=== PATIENT | female | born 1980 | race Hispanic/Latino ===

== ENCOUNTER 2018-06-17 13:17 | Emergency (ER) | payer OTHER ==
[2018-06-17 14:14] VITALS: BMI 21.6
[2018-06-17] MEDS ORDERED: Betamethasone Soluspan 30 mg/5mL Inj Susp IM ONE (14:30)
[2018-06-17] MEDS ORDERED: Lactated Ringer's 1,000 ML IV SCH (15:30)
[2018-06-17 16:36] LABS: SQUAMOUS EPITHIAL < 1 /hpf (0-5); URINE BACTERIA RARE (<OCC); URINE BILIRUBIN NEGATIVE (NEGATIVE); URINE BLOOD NEGATIVE (NEGATIVE); URINE CLARITY SLIGHTY-CLOUDY (Clear); URINE COLOR YELLOW (YELLOW); URINE GLUCOSE (UA) NEG (NEGATIVE); URINE LEUKOCYTE ESTERASE NEG Leu/uL (Negative); URINE PROTEIN NEGATIVE (NEGATIVE); URINE UROBILINOGEN 0.2-1.0 mg/dL (0.2-1.0)
[2018-06-21 16:40] VITALS: BP 102/63; PULSE 77
== END 2018-06-17 17:30 | disposition home or self-care (01) ==
LOC: H.EROB2 13:17
DX: O26.93 Pregnancy related conditions, unspecified, third trimester (principal); Z23 Encounter for immunization; Z3A.33 33 weeks gestation of pregnancy
CPT/HCPCS: 81003; 96372; 99281; J0702; J7120

== ENCOUNTER 2018-06-18 13:22 | Emergency (ER) | payer OTHER ==
[2018-06-18 13:44] VITALS: BMI 23.3
[2018-06-18] MEDS ORDERED: Betamethasone Soluspan 30 mg/5mL Inj Susp IM ONE (13:44)
[2018-06-18] MEDS: Lactated Ringer's 1,000 ML IV SCH ×2 (15:40→17:45)
--- NOTE | 2018-06-18 20:00 | OBHP ---
Datetime: 06/18/2018 14:13 IP Adm Impression: , intrauterine ; No Active Labor IP Admit Plan: Observation/Evaluation; Discharge home Admit Comment, IP Provider: 37yo with IUP @ 33+6 based on LMP reports to the OB ER for secon d dose of Betamethasone IM for FLM. She reports of some intermitent pelvic cramping last night but de nies vaginal bleeding or vaginal leakage of fluid. ROS: negative except for stated above in the HPI Obhx: Follow with Dr. Fuller Family history: Denies Surgical history: previous D_C x2 for IAB; tonsillectomy; wrist surgery where a plate was placed; previous LEEP. PMHx: H/O Von Willebrands Disease but no history of bleeding from surgery or dental procedures. SocialHx; Denies smoking history, drinking or illicit drug use. P.E Afebrile Heart: RRR Lungs: Clear bilaterally. No wheezes, rhonchi or crackles Abd: Soft, NT, BS- present; gravid FHR- Category 1 Assessment: 37yo with IUP @ 33+6reports to the OB ER for second dose of Betamethasone IM f or FLM. Plan: -Second Bethamethazone IM dose for FLM given at this time. -Cano Martin Pena and EFM demonstrated reassuring NST -Patient given labor precautions at this time. - Patient has a scheduled appt on with Dr. Fuller, 06/23/[address] Alina Bell, PGY 1 OB Hospitalist Addendum: Pt seen and examined by me. 37 yo at 33+6 wks w/ short cervical length here for 2nd dose of betamethasone, c/o mild cramping on and off. VE closed/ 65/-3. Cervix 2.4 cm long, closed. FHT reactive. Pt discharged home w/ PT labor precautions. Pt has f/u appoint on ., 06/23/2018. (ES) Pelvic Type - PN: Adequate Extremities - PN: Normal Abdomen - PN: Normal Back - PN: Normal Breast - PN: Not Done Lungs - PN: Normal Heart - PN: Normal Thyroid - PN: Normal Neurologic - PN: Normal HEENT - PN: Normal General - PN: Normal FHR - Baseline A Provider: 125 EGA AdmitDate IP: 33.6 Vital Signs Provider: Reviewed; Within Normal Limits IP Chief Complaint: Maternal discomfort NICHD Variability Prov Fetus A: Moderate 6-25bpm NICHD Accel Fetus A IP Provider: 15X15 FHR Category Provider Fetus A: Category I NICHD Decel Fetus A IP Provider: None Genitourinary Exam: Normal DTRs - PN: Normal
--- NOTE | 2018-06-18 20:00 | OBDCSUM ---
Datetime: 06/18/2018 19:53 Discharged to, Provider: Home Follow up at, Provider: Dr. Fuller Disch Instr Activity: Normal activity Disch Instr Diet: Regular Discharge Diet restrict Prov: Pelvic rest Discharge Time: 06/18/2018 19:54 Follow up in weeks, Provider: 06/23/18 Disch Referrals: None Discharge Diagnosis Prov Other: Steroid administration Datetime: 06/18/2018 14:49 Discharged to, Provider: Home Follow up at, Provider: Dr. Alina Juarez Instr Activity: Normal activity Disch Instr Diet: Regular Discharge Diet restrict Prov: Pelvic Rest Discharge Time: 06/18/2018 14:53 Follow up in weeks, Provider: 06/23/18 Disch Referrals: None
[2018-06-19 00:12] VITALS: BP 102/63; PULSE 77
--- NOTE | 2018-06-19 10:02 | US ---
Date of service: 06/18/2018 PROCEDURE: OB Pelvic Ultrasound HISTORY: ctxns LMP: 10/15/2017 COMPARISON: None available. FINDINGS: Single intrauterine gestation is present. heart rate measures 125 beats per minute. Cervical length is 2.4 cm. Cervix is closed. IMPRESSION: Cervical length is 2.4 cm. Cervix is closed.
== END 2018-06-18 20:00 | disposition home or self-care (01) ==
LOC: H.EROB2 13:22
DX: O26.93 Pregnancy related conditions, unspecified, third trimester (principal); R10.2 Pelvic and perineal pain; Z23 Encounter for immunization; O09.93 Supervision of high risk pregnancy, unspecified, third trimester
CPT/HCPCS: 76817; 96360; 96372; 99282; J0702; J7120

== ENCOUNTER 2018-07-12 03:28 | Inpatient (IN) | payer OTHER ==
[2018-07-12 04:48] VITALS: BMI 22.1
[2018-07-12] MEDS ORDERED: Morphine 5 MG/ML SYRINGE IM ONE ×2 (04:49→04:51)
[2018-07-12] MEDS ORDERED: Morphine 5 MG/ML SYRINGE IVP ONE (04:51)
[2018-07-12] MEDS ORDERED: Lactated Ringer's 1,000 ML IV SCH (08:15)
--- NOTE | 2018-07-12 08:20 | OBADHP ---
Datetime: 07/12/2018 04:34 Admit Comment, IP Provider: PNP: Dr. Fuller 38 y/o @ 37.2 w/ANUJA of 07/31/2018 w hx of Von Willebrand disease is presenting with complaints of ctx every 5-6 minutes since 930pm, 8 in nature, loss of mucus plug with small amt of streaked blood _ possible leaking of fluid. She endorses + FM _ nausea, but denied any f/c/cp, sob, dizziness, vomitting or recent travel. OBGYNhx: visited ED several weeks agp for lower abd cramping- found to have a shortened cervix and given dexamethasone x 2 doses; Induced abx x 2; sab x 1 -LEEP procedure performed w/o bleeding PMH: Von Willebrand disease All: none Meds: Benadryl- for sleeping, PNV Surghx: plate placed in left arm; sinus surgery- both with bleeding post-op Famhx: both parents healthy; hx of gyncelogical cancer on maternal side Sochx: denies tobacco, EtOH or elicit drug use ROS: 12 points reviewed and neg unless otherwise mentioned in HPI PE: Gen:gravid female with facial grimacing laying in supine position Cardio: s1s2, no murmurs Lungs: cta b/l Abd: gravid, nontender, no rigidity, no guarding Pelvic: sterile spec- no gross pooling, nitrazine test negative; 1cm dilated, 90 % effaced, -3 Ext: calves nontender, nonedematous A/P: 38 y/o @ 37.2 w/ANUJA of 07/31/2018, clinically stable, _ medhx of Von Willebrand disease c /o ctx every 5-6 minutes since 930pm, loss of mucus plug with small amt of streaked blood _ possible leaking of fluid. -Speculum exam showed no gross pooling, nitrazine test negative; 1 cm, 90%, -3 -Continue _ VS monitoring -Morphine ordered for pain management -Will reassess for cervical change; if no change dc home otherwise will admit Patient seen and examined with Dr. Prado -Suad Gant, PGY-1, FM Addendum by Dr. prado: Patient evaluated independently and I agree with the above. Patient re-eval auted and now /-1. Patient in labor, will admit, IVF, CBC/type and screen, and alert hematology Membranes, Provider: Intact Gestation - Est Wks by US: 37.2 Pool Provider: Negative Nitrazine Provider: Negative Vital Signs Provider: Reviewed; Within Normal Limits IP Chief Complaint: Uterine contractions; Suspected ruptured membranes NICHD Variability Prov Fetus A: Moderate 6-25bpm NICHD Accel Fetus A IP Provider: [id number] FHR Category Provider Fetus A: Category I Dilatation, Provider: 1 Effacement, Provider: 90 Station, Provider: -3 EGA AdmitDate IP: 37.2 IP Adm Impression: Term, intrauterine IP Admit Plan: Observation/Evaluation Datetime: 06/18/2018 14:13 Pelvic Type - PN: Adequate Extremities - PN: Normal Abdomen - PN: Normal Back - PN: Normal Breast - PN: Not Done Lungs - PN: Normal Heart - PN: Normal Thyroid - PN: Normal Neurologic - PN: Normal HEENT - PN: Normal General - PN: Normal FHR - Baseline A Provider: 125 NICHD Decel Fetus A IP Provider: None Genitourinary Exam: Normal DTRs - PN: Normal Datetime: 06/17/2018 14:13 IP Adm Impression Other: Shortened Cervix on Ultrasound
[2018-07-12 09:09] LABS: BASO % 0.2 % (0.0-2.0); EOS % 0.4 % (0.0-4.0); HEMOGLOBIN 12.8 g/dL (12.0-16.0); LYMPH % 19.8 % (20.0-40.0); MEAN CORPUSCULAR HEMOGLOBIN 30.7 pg (27.0-31.0); MEAN CORPUSCULAR HGB CONC 33.4 g/dL (33.0-37.0); MEAN PLATELET VOLUME 10.4 fl (7.2-11.7); MONO % 10.4 % (0.0-10.0); NEUT % 69.2 % (50.0-75.0); NRBC % 0.1 % (0.0-0.0); RBC 4.16 Mil/uL (3.80-5.20); RED CELL DISTRIBUTION WIDTH 14.6 % (11.5-14.5); WHITE BLOOD COUNT 10.1 K/uL (4.8-10.8)
[2018-07-12 09:11] VITALS: O2SAT 98
[2018-07-12] MEDS ORDERED: Desmopressin 4 mcg/ml Inj (1 ml) IVPB SCH (09:45)
[2018-07-12] MEDS ORDERED: Oxytocin 30 UNIT 30 UNITS/500 ML BAG IV ONE ×3 (10:36→15:13)
[2018-07-12] MEDS ORDERED: raNITIdine HCl 150 mg/10 ml Soln Cup PO SCH (10:45)
[2018-07-12] MEDS ORDERED: OXYTOCIN/0.9 % NS 20 UNIT/1,000 ML BAG IV SCH (10:45)
[2018-07-12] MEDS: Lactated Ringer's 1,000 ML IV SCH ×2 (11:15→11:51)
--- NOTE | 2018-07-12 11:45 | OBPN ---
Datetime: 07/12/2018 10:25 IP Progress Impression: Normal progression of labor; Reassuring heart rate IP Informed Consent Obtain: Vaginal Delivery; Risks, Benefits and Alternatives Discussed IP Progress Plan: Augmentation Pool Provider: Negative Membranes, Provider: Intact Contraction Comments Provider: occ FHR - Baseline A Provider: 130 Presentation-Admit: Vertex IP Progress Note Comment: OB Hospitalist on-call - sign out re'cd from Dr Prado and pt's PMD Dr Dez wilson (both in L_D) case rev'd. Latnet phase of labor Sauloradhajoe's Disease PLAN: Discussion with Dr Greenwood...management, labor, delivey, medications all re'd with pt. She un derstands and her questoins answered. [place] rooms away from nurses' station (for more quiet atmo sphere). Will start Pitocin augmentation NICHD Accel Fetus A IP Provider: 15X15 FHR Category Provider Fetus A: Category I NICHD Variability Prov Fetus A: Moderate 6-25bpm Dilatation, Provider: 3 Effacement, Provider: 80 Station, Provider: -1 NICHD Decel Fetus A IP Provider: None Datetime: 07/12/2018 04:34 Nitrazine Provider: Negative Gestation - Est Wks by US: 37.2 Vital Signs Provider: Reviewed; Within Normal Limits
[2018-07-12] MEDS ORDERED: Lactated Ringer's 1,000 ML IV ONE (12:16)
[2018-07-12] MEDS ORDERED: Bupivacaine HCl 0.5% PF (30 ml) Inj ONE (13:05)
[2018-07-12] MEDS ORDERED: Fentanyl/Bupivacaine HCl 250 ML EPI ONE (13:32)
--- NOTE | 2018-07-12 14:43 | OBPN ---
Datetime: 07/12/2018 14:36 IP Progress Note Comment: Notified that she rec'd meds around 12pm; given epidural. She is now slee ping after being checked at 1:30pm (5cm)...Pitocin re-started. FH reassuring. YG
--- NOTE | 2018-07-12 16:02 | OBPN ---
Datetime: 07/12/2018 15:45 IP Progress Impression: Reassuring heart rate IP Procedures: Artificial ROM IP Progress Plan: Augmentation; Anticipate Vaginal Delivery Pool Provider: Positive Membranes, Provider: Ruptured Amniotic Fluid Color, Provider: Clear Contraction Comments Provider: 2-5m IP Progress Note Comment: She feels better after epidural. A: latnet phase of labor PLAN: Pioticn at 6miu/h...discussion about labor and augmentatoin...She agreed - AROM clear fluid. ..monitor progress FHR Category Provider Fetus A: Category I Dilatation, Provider: 4-5 Effacement, Provider: 80 Station, Provider: -1
--- NOTE | 2018-07-12 18:07 | OBPN ---
Datetime: 07/12/2018 17:55 IP Progress Impression: Normal progression of labor; Reassuring heart rate IP Informed Consent Obtain: Vaginal Delivery; Risks, Benefits and Alternatives Discussed IP Progress Plan: Continue present management Pool Provider: Positive Membranes, Provider: Ruptured FHR - Baseline A Provider: 135 Presentation-Admit: Vertex IP Progress Note Comment: She feels fine. SVE 9cm 100 0 station Active phase of labor PLAN anticiapte Pitocin at 10 miu/h NICHD Accel Fetus A IP Provider: [id number] FHR Category Provider Fetus A: Category I NICHD Variability Prov Fetus A: Moderate 6-25bpm Dilatation, Provider: 9 Effacement, Provider: 100 Station, Provider: 0 NICHD Decel Fetus A IP Provider: None
--- NOTE | 2018-07-12 19:40 | OBPN ---
Datetime: 07/12/2018 19:30 IP Progress Impression: Normal progression of labor; Reassuring heart rate IP Progress Plan: Augmentation; Anticipate Vaginal Delivery Contraction Comments Provider: 2-3m IP Progress Note Comment: She feels more pressure Second stage of labor PLAN anticiapte FHR Category Provider Fetus A: Category I Dilatation, Provider: 10 Effacement, Provider: 100 Station, Provider: 1
[2018-07-12] MEDS ORDERED: Oxytocin 10 Units/ml Inj ONE ×2 (19:49→19:50)
[2018-07-12] MEDS ORDERED: Lidocaine 1% (10 ml) Inj IV ONE (22:00)
[2018-07-12] MEDS ORDERED: Oxycodone/Acetaminophen 5/325 mg Tab PO PRN (23:08)
[2018-07-12] MEDS ORDERED: Benzocaine/Menthol SPRAY TOP PRN (23:08)
[2018-07-13] MEDS ORDERED: Lidocaine 1% HCL/PF 100 MG/10 ML AMPUL IJ ONE (02:08)
[2018-07-13] MEDS ORDERED: Lidocaine 1% Inj (20ml) IJ ONE ×3 (02:15→02:42)
[2018-07-13] MEDS ORDERED: Benzocaine/Menthol SPRAY TOP PRN (02:42)
[2018-07-13] MEDS ORDERED: Oxycodone/Acetaminophen 5/325 mg Tab PO PRN (02:42)
[2018-07-13] MEDS ORDERED: OXYTOCIN/0.9 % NS 20 UNIT/1,000 ML BAG IV SCH (02:42)
[2018-07-13 06:18] LABS: BASO % 0.2 % (0.0-2.0); EOS % 0.1 % (0.0-4.0); HEMOGLOBIN 10.3 g/dL (12.0-16.0); LYMPH # 1.3 K/uL (1.0-4.3); LYMPH % 8.3 % (20.0-40.0); MEAN CORPUSCULAR HEMOGLOBIN 31.2 pg (27.0-31.0); MEAN CORPUSCULAR HGB CONC 34.2 g/dL (33.0-37.0); MEAN PLATELET VOLUME 9.3 fl (7.2-11.7); MONO # 1.8 K/uL (0.0-0.8); MONO % 10.9 % (0.0-10.0); NEUT % 80.5 % (50.0-75.0); PLATELET COUNT 159 K/uL (130-400); RED CELL DISTRIBUTION WIDTH 14.1 % (11.5-14.5); WHITE BLOOD COUNT 16.2 K/uL (4.8-10.8)
--- NOTE | 2018-07-13 08:21 | OBPPN ---
Datetime: 07/13/2018 08:16 PP Pain Prov: Within normal limits PP Abdomen/Uterus Prov: Normal PP Lochia Prov: Normal PP Extremities Prov: Normal PP Progress Prov: Normal PP Impression Prov: Normal progression PP Plan Prov: Continue present management PP Progress Note Prov: PPD 1 s/p , doing well, breast feeding Continue current management Vital Signs Provider PP: Reviewed
[2018-07-13 09:20] LABS: BANDS 3 % (0-2); LYMPHOCYTE 7 % (20-50); MONOCYTE 12 % (0-10); NEUTROPHIL 78 % (42-75); PLATELET ESTIMATE NORMAL (NORMAL); TOTAL CELLS COUNTED 100
[2018-07-14 18:44] VITALS: BP 115/72; PULSE 83; RESP 20; TEMP 98
== END 2018-07-14 14:20 | disposition home or self-care (01) | DRG 806 ==
LOC: H.EROB2 03:28 → H.L&D 08:06 → H.OB/GYN 07-13 02:30
PROVIDERS: ADMIT Obstetrics & Gynecology; ATTEND Obstetrics & Gynecology
PROC: 10E0XZZ Delivery of Products of Conception, External Approach (ICD-10-PCS; principal; 2018-07-12)
PROC: 4A1HXCZ Monitoring of Products of Conception, Cardiac Rate, External Approach (ICD-10-PCS; 2018-07-12)
DX: O77.0 Labor and delivery complicated by meconium in amniotic fluid (principal); O99.12 Other diseases of the blood and blood-forming organs and certain disorders involving the immune mechanism complicating childbirth; Z37.0 Single live birth; D68.0 Von Willebrand disease; Z3A.37 37 weeks gestation of pregnancy